=== PATIENT | female | born 1970 | race Caucasian/White ===

== ENCOUNTER 2024-12-13 21:52 | Inpatient (IN) | payer OTHER, SELFPAY ==
[2024-12-13 16:44] VITALS: BP 131/88
[2024-12-13 17:08] LABS: % Eosinophils 1.6 % (0-6); % Immature Granulocytes 0.3 % (0-0.5); % Lymphocytes 28.9 % (20.5-51.1); % Monocytes 6.8 % (1.7-9.3); % Neutrophils 61.4 % (42.2-75.2); Absolute Basophils 0.1 10^3/uL (0-0.2); Absolute Eosinophils 0.1 10^3/uL (0-0.7); Absolute Lymphocytes 2.6 10^3/uL (1.2-3.4); Absolute Monocytes 0.6 10^3/uL (0.1-0.6); Absolute Neutrophils 5.4 10^3/uL (1.4-6.5); Hemoglobin 13.5 g/dL (12.0-16.0); Mean Corp Hgb Conc. 33.8 g/dL (33.0-37.0); Mean Corpuscular Hgb 30.3 pg (27.0-31.0); Mean Corpuscular Volume 89.7 fL (81.0-99.0); Mean Platelet Volume 10.2 fL (7.4-10.4); Nucleated Red Blood Cells % 0 %; Platelet Count 248 10^3/uL (130-400); Red Blood Cell Count 4.46 10^6/uL (4.20-5.40); Red Cell Dist. Width 12.9 % (11.5-14.5); White Blood Cell Count 8.9 10^3/uL (4.8-10.8)
[2024-12-13 17:20] LABS: COVID-19 Antigen Negative (Negative)
[2024-12-13 17:27] LABS: ALT (SGPT) 21 U/L (0-35); AST (SGOT) 22 U/L (14-36); Albumin 4.6 g/dl (3.5-5.0); Alkaline Phosphatase 77 U/L (38-126); Blood Urea Nitrogen 19 mg/dl (7-17); Calcium 9.5 mg/dl (8.4-10.2); Carbon Dioxide 22 mmol/L (22-30); Chloride 103 mmol/L (98-107); Glucose 114 mg/dl (70-99); Potassium 4.1 mmol/L (3.5-5.1); Sodium 135 mmol/L (135-145); Total Bilirubin 0.5 mg/dl (0.2-1.3); Total Protein 7.3 g/dl (6.3-8.2); eGFR > 60.00
[2024-12-13 17:31] LABS: Troponin I < 0.012 ng/ml
[2024-12-13 18:20] VITALS: BP 138/89
[2024-12-13 19:00] VITALS: BP 141/99
--- NOTE | 2024-12-13 19:58 | ED.GENMED ---
History of Present Illness
General
Chief Complaint: Chest Pain
Source: patient
Time Seen by Provider: 12/13/24 18:42
History of Present Illness
History of Present Illness:
54-year-old female with no significant past medical history presenting to the emergency department for evaluation after she has been experiencing intermittent episodes of lightheadedness which she states last for only a couple of seconds and then
resolved but have been more consistent today and accompanied with some mild. Patient notes that when she gets the lightheadedness sensation she often will feel little short of breath and today also had a mild headache but notes the headache is now
fully resolved and at time of my exam patient is asymptomatic. She denies any fevers or recent illnesses. Denies any palpitations, diaphoresis, exertional dyspnea, orthopnea, cough, abdominal pain or any other concerns. Denies any history of
similar. Social history unremarkable for any abnormalities. Family history noncontributory.
Past History
Past History
ED Past Medical History: None
ED Past Surgical History: None
Social History
Tobacco: Non-smoker
Alcohol: Occasional
Drug: None
Personal:
Living: with family
Review of Systems
Review of Systems
All Other Systems: ROS reviewed and negative except as documented in HPI and ROS
Phy Exam
Physical Exam
Physical Exam:
GENERAL: Alert , in no apparent distress
HEAD: NCAT
EYE: conjunctiva clear
NECK: Supple
ENT: o/p clr, mmm.
CARDIAC: Regular rate and rhythm
LUNGS: Clear breath sounds bilaterally, no acute respiratory distress, no wheezes/rales/rhonchi
NEUROLOGICAL: Alert and oriented
SKIN: Warm and dry, skin intact.
MUSCULOSKELETAL: well perfused.
PSYCH: Normal and appropriate interaction.
Scores
Heart Failure Risk
Heart Failure Risk Score: Not Applicable
Heart Score for Chest Pain Patients
STEMI patient?: Not applicable
Withdrawal Assessment of Alcohol
Withdrawal Assessment Completed?: Not applicable
Course
Orders/Labs/Results
Orders:
Orders
12/13/24 16:39
EKG [Electrocardiogram (*1)] Urgent
Reason for Study: Chest Pain
EKG- Treatment ONCE
12/13/24 16:54
COVID-19 Antigen Urgent
Source: Nasal Swab
Complete Blood Count/With Diff Urgent
Comprehensive Metabolic Panel Urgent
Troponin I Urgent
Influenza A+B Rapid Molecular Urgent
SHEBA Source: Nasal Swab
Specimen Description:
12/13/24 17:59
CR Chest - 2 Views Urgent
Comment:
Reason For Exam: chest pain
12/13/24 19:42
EKG [Electrocardiogram (*1)] Urgent
Reason for Study: Chest Pain
EKG- Treatment ONCE
12/13/24 19:46
Troponin I Urgent
Abnormal Lab Results
12/13/24
16:54
BUN 19 H mg/dl
(7-17)
Glucose 114 H mg/dl
(70-99)
12/13/24 16:54
12/13/24 16:54
Vital Signs
Initial and Last Documented VS:
Initial Vital Signs
Temp Pulse Resp BP Pulse Ox
98.9 F 83 18 131/88 99
12/13/24 16:44 12/13/24 16:44 12/13/24 16:44 12/13/24 16:44 12/13/24 16:44
Last Documented Vital Signs
Temp Pulse Resp BP Pulse Ox
98.9 F 70 17 131/88 99
12/13/24 16:44 12/13/24 18:20 12/13/24 18:20 12/13/24 16:44 12/13/24 16:44
MDM/Problems Addressed
Differential Diagnosis Includes:
ACS, dissection, cardiac dysrhythmia, valvular dysfunction, PE considered however given patient is without any cough/pleurisy/hypoxia I am a little less suspicious for this is a diagnosis, anxiety/stress considered given patient currently studying
for an exam that she is scheduled to take within 1 week
MDM/Problems Addressed:
54-year-old female presenting to the ER for evaluation of transient lightheadedness and chest discomfort over the last 48 hours. Patient describes it as if she were to stand up very quickly but notes she has been experiencing the symptoms even when
laying flat. No recent illnesses. Labs were initiated on arrival which are all reassuring. Chest x-ray without any abnormal findings. EKG is normal sinus rhythm without any ectopy or ischemic changes. Given patient is low risk chest pain will
obtain 3-hour troponin and repeat EKG. Disposition pending and can refer patient to the chest pain hotline for an expedited follow-up.
*Radiology
Radiology exam reviewed: preliminary read by ED provider (Normal chest x-ray)
*Pulse Oximetry
Patient hypoxic: no
*EKG
Heart Rate: 84
Rate: normal
Rhythm: sinus
Ischemia: no ischemia
*Substance Abuse Prevention Coordinator Interpretation
Rate: normal
Rhythm: sinus
*Critical Care Note
Total Time (30-74mins, 75-104mins- exclusive of procedures): Not Applicable
Patient Management
Discussion with other providers: Hospitalist and Traveling Representative
Escalation/DeEscalation of care consider admission/obs:
While awaiting for repeat troponin and EKG, patient was noted on her telemetry to go into an approximate 6-second pause and was symptomatic during this time. Patient was placed on pacer pads, repeat EKG done as well as repeat troponin. Repeat EKG
shows patient is still in a normal sinus rhythm with no ischemic changes. Cardiology team notified and will see the patient in consult. Agrees with remaining workup plan. Hospitalist team accepts for continued evaluation and treatment.
ED Attending Note
-
Portions of this chart may have been created with voice recognition software.� Occasional wrong word or��sound alike� substitutions may have occurred due to the inherent limitations of voice recognition software.
Discharge Plan
Departure
Patient Disposition: Admit
Date of Disposition: 12/13/24
Time of Disposition: 19:59
Presentation/result/management discussed w/ accepting MD/DO: Hospitalist
Discharge Problem:
Cardiac dysrhythmia
Prescriptions:
No Action
Advil
2 tab PO PRN PRN (Reason: MTZ)
Patient Comments:
pt does not know dose
Interventions
Interventions:
*Risk Screen - Suicide Last Done: 12/13/24 16:45
*General Assessment Last Done: 12/13/24 16:45
*Neglect/Abuse Screening Last Done: 12/13/24 16:45
*ED COVID-19 Vaccine History Last Done: 12/13/24 18:04
ED- Cardiac Assessment Last Done: 12/13/24 18:21
Discharge Date and Time
Print Language: [id number]
--- NOTE | 2024-12-13 20:06 | EDRN ---
While on ekg monitor tech, pt. witnessed to have approximately 6 second pause, provider notified, EKG complete, IV access obtained/repeat trop. drawn. Cardiac rhythm strip printed and placed on chart. Cardiac pads placed on pt. per PA verbal orders,
code cart at bedside.
[2024-12-13 20:19] VITALS: BP 153/92
[2024-12-13 20:19] LABS: Troponin I < 0.012 ng/ml
--- NOTE | 2024-12-13 20:38 | HPS.HSE ---
Family Physician
-
Family Physician: ADITYA Barrow
Chief Complaint
-
lightheadedness and chest discomfort
History of Present Illness
Patient is a 54-year-old female with no significant past medical history who presented to [place] ED for evaluation of lightheadedness and chest discomfort. Patient states she has had episodes of lightheadedness on and off for years. She reports
they normally have been with months in between. This week it has been intermittent over the past 48-hours. She denies any lightheadedness today until after arrival in ED. She stated she called her primary provider today with c/o chest discomfort
that felt as if something was sitting on her chest. She assumed she was getting sick as her son is just getting over influenza. Primary provider returned her call to schedule an appointment and recommended she come to ED for evaluation. Patient
denies any other associated symptoms with the brief lightheadedness. She claims they last a few seconds then resolves completely. Patient denies any recent sick contact, fevers, chills, palpitations, shortness of breath, nausea, vomiting,
constipation, diarrhea, or urinary symptoms.
Medical History
Past Medical History
Past Medical History: Reports None
Past Surgical History: Reports Other
Additional Past Surgical History:
bilateral bunionectomy
lipoma removal from shoulder
Social History
Tobacco: Non-smoker
Alcohol: Occasional
Drug: None
Personal:
Living: With Family
Employment: Employed
Family History
Family History: Not pertinent
Allergies / Home Medications
Allergies reflects when Allergies were last updated in [facility].
Home Medications with original date entered in [facility]
Allergy/Medication List:
Allergies
Allergy/AdvReac Type Severity Reaction Status Date / Time
amoxicillin Allergy Unknown Verified 12/13/24 16:48
Cephalosporins Allergy Unknown Verified 12/13/24 16:48
Penicillins Allergy Unknown Verified 12/13/24 16:48
Home Medications
Review of Systems
-
History Source: Patient
Constitutional: Reports No Symptoms
EENT: Reports No Symptoms
Respiratory: Reports No Symptoms
Cardiac: Reports Chest Pain
Abdomen/GI: Reports No Symptoms
: Reports No Symptoms
Musculoskeletal: Reports No Symptoms
Skin: Reports No Symptoms
Neurological: Reports Other (intermittent lightheadedness )
Endocrine: Reports No Symptoms
Hematologic/Lymphatic: Reports No Symptoms
Psych: Reports No Symptoms
Physical Exam
Vital Signs
Vital Signs
Temp Pulse Resp BP Pulse Ox
98.9 F 80 13 153/92 99
12/13/24 16:44 12/13/24 20:19 12/13/24 20:19 12/13/24 20:19 12/13/24 20:19
Physical Exam
General: Well Developed, Well Nourished, No Apparent Distress, Comfortable and Conversant
HEENT: NormoCephalic, Moist mucous membranes, Atraumatic, Nose Appears Normal and Ears Appear Normal
Respiratory: Clear and Non Labored Respirations
Cardiac: S1/S2 and Regular Rhythm; No Murmur, Rub or Gallop
Breast: Deferred by me
GI: Soft, Non Tender and Normal Bowel Sounds; No Organomegaly
Rectal: Deferred by Provider
Genito-urinary: Deferred by me
Musculoskeletal: No Clubbing, No Cyanosis and No Edema
Skin: Warm and IV/Catheter Site; No Rash
Neuro: Awake, Alert, AO x 3 and Nonfocal/grossly intact
Psych: Calm and Intact Judgment/Insight
Laboratory Results
-
12/13/24 16:54
12/13/24 16:54
Laboratory Results
Total Bilirubin 0.5 mg/dl (0.2-1.3) 12/13/24 16:54
AST 22 U/L (14-36) 12/13/24 16:54
ALT 21 U/L (0-35) 12/13/24 16:54
Alkaline Phosphatase 77 U/L (38-126) 12/13/24 16:54
Troponin I < 0.012 ng/ml 12/13/24 19:46
Data Reviewed
-
Diagnostic Radiology: Report Reviewed by me (CXR: )
Medical Tests (Nuc Med, Echo, EKG etc): Report Reviewed by me (EKG: NSR)
Lab Data: Labs Reviewed by me
Impression/Plan
-
IMPRESSION/PLAN:
#lightheadedness
CXR: pending
EKG: NORMAL SINUS RHYTHM
6 second pause caught on telemetry in ED
- admit to telemetry
- consult cardiology
- trend troponin
- ECHO in AM
- labs: BNP, TSH, A1C, [facility] [place], lipids, mag
Code status:Full code
DVT Prophylaxis: Lovenox sq
--- NOTE | 2024-12-13 20:57 | W.PN.UPDATE ---
Update Note
Progress Note Update
Patient seen in conjunction with ADITYA. I agree with the findings on history and physical as well as the assessment and plan.
Briefly this is a generally healthy 54-year-old who denies any significant past medical history, notes past medical history of aneurysms, and stroke in the family. Present to the emergency department after being interviewed by physician for
palpitations and chest heaviness.
Patient reported that she has had a history of palpitations for a long time. Only occurs about once to twice a month and then resolves within seconds and she often attributes this to low blood sugars. She has no known history of diabetes. However
in the last 1 week the patient reports that she has had increased frequency of the palpitations and lasting longer. She feels dizzy and lightheaded with them now. She stated that this afternoon while at work she had a palpitations and then
developed chest pressure. This lasted several seconds. At home she complains of being short of breath and when she discussed this with her son he thought she was just tired from walking. Patient reports that her son recently had a flulike
infection. She denies any flulike symptoms. Patient reports history of having had a tick on her skin in August 2023. Patient denies any any rash. She denies any joint aches and pains. She denies any prior episodes of exertional chest pain or
exertional dyspnea. Has no recent travels. Denies any lower extremity swelling.
In the emergency department she was afebrile, blood pressure was 150/90 with a pulse of 80 satting 99% on room air. ECG showed a normal sinus rhythm in the 70s unchanged from prior. Troponin was reported 012. CBC was normal electrolytes
BUN/creatinine were also normal. While she was on telemetry she was found to have a 6-second ventricular pause with 9 non-conducted p waves and symptomatic.
Assessment and plan�acute conduction abnormality with possibility of development of her heart block. Etiology uncertain. No rate agents in history. Currently sinus at 70s Normal BP
Admit to IVU
Zolepads at bedside
If symptomatic or unstable will need temp ppm (cardiology aware)
Epinephrine gtt for symptomatic heart block
- check tsh, lyme, d-dimer
- echo
- cycle enzymes check bnp
- a1c and cardiovascular testing
- npo after midnight
- cardiology consult.
DVT PPX - lovenox sq
Code status - Full Code
[2024-12-13 21:00] VITALS: BP 146/92
[2024-12-13 22:17] VITALS: BP 139/90
[2024-12-13 23:22] LABS: Troponin I < 0.012 ng/ml
[2024-12-13 23:42] VITALS: BMI 28.0
--- NOTE | 2024-12-13 23:52 | PTCARENOTE ---
Received patient from ED. SR on the monitor, HR in the 70s. Alert and oriented. Pads in place, Educated patient on plan of care, pt verbalizes understanding. No complaints from pt at this time, call logan within reach.
[2024-12-14] VITALS (7 sets, daily range): BP systolic 115–142; BP diastolic 72–90
[2024-12-14 01:43] LABS: Troponin I < 0.012 ng/ml
[2024-12-14 05:29] LABS: ALT (SGPT) 20 U/L (0-35); AST (SGOT) 20 U/L (14-36); Albumin 4.1 g/dl (3.5-5.0); Alkaline Phosphatase 61 U/L (38-126); Blood Urea Nitrogen 15 mg/dl (7-17); Calcium 9.1 mg/dl (8.4-10.2); Carbon Dioxide 19 mmol/L (22-30); Chloride 105 mmol/L (98-107); Estimated Creatinine Clearance 93 ml/min; Glucose 97 mg/dl (70-99); HDL Cholesterol 35 mg/dl; LDL Cholesterol, Calculated 105 mg/dl; Magnesium 1.9 mg/dl (1.6-2.3); Potassium 4.3 mmol/L (3.5-5.1); Sodium 136 mmol/L (135-145); Total Bilirubin 0.7 mg/dl (0.2-1.3); Total Cholesterol 197 mg/dl (50-199); Total Protein 6.6 g/dl (6.3-8.2); Triglyceride 288 mg/dl (10-149); Very Low Density Lipoprotein 57 mg/dl (0-30); eGFR > 60.00
--- NOTE | 2024-12-14 08:50 | CM ---
Reviewed chart. . Met with Mrs. Markham to review discharge plans. She states prior to admission she resides with her spouse and three boys in a three story home with two steps to enter. She states she has a full flight of steps to get to
bedroom/full bathroom. She states she has a powder room on the first floor. She states prior to admission she was independent with ambulation and adls. She states she pickard not have any DME in the home. She states she has a prescription plan and
uses [facility]. Medical work-up in progress. The discharge plan is to return home with her spouse and children when medically stable.
[2024-12-14 09:06] LABS: Troponin I < 0.012 ng/ml
[2024-12-14 09:27] LABS: Glycohemoglobin (HgbA1c) 5.6 % (4.0-5.6)
--- NOTE | 2024-12-14 09:41 | CON.CAR ---
Addendum entered and electronically signed by Surendra Higuera MD 12/14/24 12:16:
Patient seen and examined
Agree with KYLEIGH Woods's note and assessment
Agree with KYLEIGH's plan
Reviewed telemetry strip from the emergency department demonstrating normal ND interval with a 6.6-second pause with abrupt loss of conduction and upon resumption of conduction ND interval appears similar in duration. She has noted 4-5 episodes
daily over the weekend and this week and the episode in the emergency department this morning led to tunnel vision but no gita syncope. She has been tired and stressed due to an upcoming examination. Reduced hydration and increased caffeine over
the last 3 to 4 days. She has had these episodes since her early 30s without gita syncope typically being 3-4 times a year but as stated above over the last 3 to 4 days they have been escalating in frequency and duration of symptoms. She has no
history of pacing in the family or sudden cardiac in the family. Her chest symptoms are not related to exercise. She has no history of sudden in the family nor premature cardiac pacing in the family.
Examination:
As per KYLEIGH Woods's notes
Cor regular
Left sided IV
Alert and x 3
Nonfocal neurological
No respiratory distress
Her telemetry from the emergency department was reviewed
Primary District Loss Prevention Manager: none
Assessment:
Presentation with lightheaded episodes
7.7 second ventricular pause, symptomatic associated with tunnel vision and near syncope
ECHO 12/14/24: pending
Plan:
-Patient presented with increased frequency of episodes of lightheadedness over the last 48 hours. While in the emergency room, she had reproduction of symptoms associated with a 7.7-second sinus pause on telemetry. She has had these episodes for
approximately 20 years but escalating in frequency over the last week
-Not on AV michelle blocking agents as an outpatient
-Troponins negative x 3. Chest x-ray without acute disease
-Currently in sinus rhythm on review of telemetry currently with a normal ND
-Check TSH
-Check echo
-Check Lyme titer but her presentation is not consistent with Lyme
-Discussed that she may require pacemaker placement. She is presently NPO. Reviewed pacemaker procedure with patient and she is agreeable to proceed if necessary. I described a 1 and 1000 risk of IL stroke and a 1% risk of pneumothorax
tamponade infection or bleeding. We discussed options of endocardial pacing versus Micra implant and given the fact that she will likely require AV synchrony and would require multiple micros over her lifetime we discussed endocardial pacing with
standard left sided deltopectoral groove approach. She wants to discuss with her prior to implant who is in [place] with his parents with 1 being placed on hospice
-d/w nursing
-If patient defers on permanent pacing I would place her on a strict driving restriction until she agrees and also discussed that this can be progressive and could lead to morbidity. We will keep n.p.o. for now and plan tentatively pacemaker
placement after echocardiogram later today
Original Note:
Consultation
Consultation Request
Date/Time Consultation Performed: 12/14/24
Requesting Provider: Dr. Gee
Performing Provider: Salima Woods PA-C for Dr. Higuera
Reason for Consultation: lightheadedness, pause
Medical History
-
Chief Complaint: lightheadedness
History of Present Illness:
Patient is a 54 yo F without significant PMH who presents due to episodes of lightheadedness which she has experienced intermittently over the last year or two, however over the last 48 hours have become much more frequent. She reports they occur
randomly and she feels suddenly 'washed out' and lightheaded. The episodes typically last only several seconds. Denies associated LOC, CP, SOB. She had episode in ER which reproduced her symptoms and was associated on tele with 7.7 second pause.
Cardiology consulted for evaluation. Denies known history of thyroid issues. Last known tick bite was 08/2023. Denies family history of conduction issues. She is not on any av michelle blocking agents.
PMH:
none
Past Medical History
Past Medical History: Other (in HPI)
Social History
Tobacco: Non-Smoker
Alcohol: Occasional
Personal:
Living: With Family
Employment: Employed
Family History
Family History: Other (CVAs in father)
Allergies / Home Medications
Allergy/AdvReac Type Severity Reaction Status Date / Time
amoxicillin Allergy Unknown Verified 12/13/24 16:48
Cephalosporins Allergy Unknown Verified 12/13/24 16:48
Penicillins Allergy Unknown Verified 12/13/24 16:48
�Medication �Instructions �Recorded �Confirmed �Type
Advil 2 tab PO PRN PRN MTZ 02/05/11 02/05/11 History
Review of Systems
-
History Source: Patient
All other systems: Negative unless noted
Physical Exam
Vital Signs
Temp Pulse Resp BP Pulse Ox
98.2 F 70 20 135/87 98
12/14/24 07:03 12/14/24 07:45 12/14/24 07:03 12/14/24 07:07 12/14/24 07:03
Lab Results
12/13/24 16:54
12/14/24 04:35
Troponin I < 0.012 ng/ml 12/14/24 08:31
Physical Exam
General: No Apparent Distress and Comfortable
HEENT: Normocephalic, Anicteric and Moist Mucous Membranes
Respiratory: Clear and Non Labored Respirations
Cardiac: S1/S2 and Regular Rhythm
Musculoskeletal: No Clubbing, No Cyanosis and No Edema
Skin: Warm and Dry
Neuro: AO x 3
Impression / Plan
-
Primary District Loss Prevention Manager: none
Assessment:
Presentation with lightheaded episodes
7.7 second sinus pause, symptomatic
ECHO 12/14/24: pending
Plan:
-Patient presented with increased frequency of episodes of lightheadedness over the last 48 hours. While in the emergency room, she had reproduction of symptoms associated with a 7.7-second sinus pause on telemetry
-Not on AV michelle blocking agents as an outpatient
-Troponins negative x 3. Chest x-ray without acute disease
-Currently in sinus rhythm on review of telemetry
-Check TSH
-Check echo
-Check Lyme titer
-Discussed that she may require pacemaker placement. She is presently NPO. Reviewed pacemaker procedure with patient and she is agreeable to proceed if necessary
-d/w nursing
Data Reviewed
-
EKG: Tracing Personally Visualized and interpreted
Radiology: Report Reviewed by me
Labs: Labs Reviewed by me
Old Records: Reviewed
--- NOTE | 2024-12-14 10:17 | W.PN.HOSP.TC ---
Today's Communication/Plan
-
.
Assessment / Plan
Assessment / Plan
1. Acute Conduction Abnormality of Unknown Origin
- Possibility of development of heart block
- Etiology uncertain, patient not on any rate control or QRS prolonging agents
- Currently sinus, normotensive, RRR, no mr/r/g
- Zolepads at bedside
- Cardiology consulted
- Patient last seen by PCP in 08/2023.
- TSH reflex to T4
- Lyme serology (bitten by tick in 2022 without PCP follow up)
- HbA1c
- Lipid Panel shows mild hypertriglyceridemia/hypercholesterolemia
- NPO pending cardiology evaluation
Full code/Lovenox/n.p.o.
Anticipated Discharge: 24 - 48 hours
Subjective/Interval History
-
Date of Service: December 14, 2024
Patient seen and examined while resting comfortably in bed, while on her laptop, doing some work, in no acute distress. Went over her history of present illness. Briefly, patient states that she experiences intermittent lightheadedness for a number
of years, however there is no pattern and episodes are few and far between. 5 days ago, patient started to experience these episodes of lightheadedness more frequently on a daily basis. Yesterday, patient started having chest pain that she
described as a pressure ('like an elephant sitting on my chest'). The chest pain lasted approximately 3 hours. Patient denies any prior episodes of chest pain. Patient called her PCP who advised her to come to the emergency department.
ED Course: Physical examination unremarkable, AFVSS, labs unremarkable, negative CXR, EKG NSR, troponins negative. Patient had 1 episode of dizziness in the emergency department and adoption social worker showed 6-second ventricular pauses and 9
nonconducted P waves.
Overnight, patient states that she has not had any dizzy spells since that episode in the emergency department and that she has not had any chest pain while here. She denies any further cardiopulmonary complaints. Patient does note a minor
headache.
Objective Data
-
Labs:
Laboratory Results
12/14/24
04:35
Sodium 136
Potassium 4.3
Chloride 105
Carbon Dioxide 19 L
BUN 15
Creatinine 0.7
Glucose 97
Calcium 9.1
Total Bilirubin 0.7
AST 20
ALT 20
Alkaline Phosphatase 61
Vital Signs:
Vital Signs
Temp Pulse Resp BP Pulse Ox
98.2 F 70 20 135/87 98
12/14/24 07:03 12/14/24 07:45 12/14/24 07:03 12/14/24 07:07 12/14/24 07:03
Review of Systems
-
History Source: Patient
Constitutional: Reports No Symptoms
Respiratory: Reports No Symptoms
Cardiac: Reports No Symptoms
Abdomen/GI: Reports No Symptoms
Neuro: Reports Headache (Mild)
Physical Exam
-
General: Well Developed, Well Nourished, No Apparent Distress, Comfortable and Conversant
HEENT: Normocephalic and Atraumatic
Respiratory: Clear to Auscultation and Non Labored Respirations; Negative Wheezes, Rales, Rhonchi or Crackles
Cardiac: Regular Rhythm and S1/S2; Negative Irregular Rhythm, Murmur or Rub
GI: Soft and Nontender
Musculoskeletal: No Clubbing, No Cyanosis and No Edema
Skin: Warm and Dry
Neuro: Awake, Alert, AO x 3, No Motor Deficits, Nonfocal/Grossly Intact and Central Nerve's Intact
Psych: Calm
Data Reviewed
-
Labs: Labs Reviewed by me and Discussed with Patient
[2024-12-14] MEDS: OFIRMEV 100 IV (10:20)
--- NOTE | 2024-12-14 10:34 | PTCARENOTE ---
Received patient this morning resting in bed. Denies any chest pain or dizziness at this time. Pacer pads in place. Patient is NPO but has a severe headache she believes from not eating. Notified resident and patient receiving IV offirmev as
ordered.
[2024-12-14] MEDS: NSS 500 IV (10:38)
[2024-12-14 11:11] LABS: Glucose - Point of Care 88 mg/dl (70-99)
[2024-12-14 11:31] LABS: HCG, Urine Qualitative Screen Negative
--- NOTE | 2024-12-14 13:01 | W.PN.UPDATE ---
Update Note
Progress Note Update
I saw and evaluated the patient. I reviewed the resident�s note and agree with findings and plan as documented in the resident�s note.
Gen: NAD, AAOx3.
Eyes: EOMI, PERRLA, no scleral icterus.
Neck: supple.
CV: RRR, +S1/S2, no m/r/g.
Resp: CTAB, no rales, wheezes, or rhonchi.
Abd: +BS, soft, NT, ND
Skin: No rashes.
Neuro: CN 2-12 intact, non-focal.
Psych: Normal mood and affect.
CXR: No acute disease of the chest.
7.7 sec ventricular pause:
-CXR clear, trop NEG x 5, K/Mg normal TSH pending
-tele (since arrival to the floor) reviewed, no alarms. Keep zol pads in place.
-for PPM today
-transfer to [facility] service
[2024-12-14] MEDS: VANCOCIN 200 IV (14:07)
--- NOTE | 2024-12-14 16:02 | ITS.CL.PACE ---
Parts Identification Technician - Pacemaker Implant
Pacemaker Implant
Procedure Report:
Date of Procedure: December 14, 2024
Patient : 1970
Procedure: Pacemaker Implantation.
Indication: Paroxysmal AV block associated with symptoms and near syncope. Greater than 7-second pause documented in the emergency department
Implants:
Pulse Generator: Medtronic; Model# W1 DR 01; SN: [id number]
RA Lead: Medtronic; Model# 4574; SN: [id number]
RV Lead: Medtronic; Model# 4074; SN: [id number]
Technique: A time out was performed. The procedure site was identified. The patient was anesthetized by the anesthesia service. Preoperative sedation was administered. The patient was prepped and draped in the usual fashion. Local anesthetic was
applied to the left prepectoral subcutaneous tissue. A 3 inch incision was made 2.5 inches below the left clavicle. A subcutaneous pocket was created with blunt and sharp dissection and hemostasis controlled with Bovie cautery. The left axillary
vein was accessed within the pocket without difficulty. Hemostasis was excellent. The leads were introduced with 7 Fr hemostatic peel away introducer sheaths. The ventricular lead was placed at the right ventricular apex. The atrial lead was placed
in the right atrial appendage. 10 volt pacing did not capture the diaphragm. The leads were secured to the pectoralis muscle and fascia. The leads were appropriately attached to the device. The pocket was irrigated with antibiotic solution. The
device and leads were placed in the pocket. The incision was closed in three layers with absorbable suture. The estimated blood loss was minimal. There were no complications.��
Lead Analysis:
RA lead: P: 2.5 mV; Threshold: 0.5 V @ 0.5��ms; Impedance: 890 ohms.
RV lead: R: 16 mV; Threshold: 0.75 V @ 0.5��ms; Impedance: 1040 ohms.
Final Programming: AAI�DDD 50 to 170 bpm
�
Conclusion: Uncomplicated Medtronic pacemaker implant.
Recommendation: Routine post pacemaker care.
[2024-12-14] MEDS: STERILE WATER FOR INJECTION 10 ML IV (16:28)
[2024-12-14] MEDS: AZACTAM 2000 MG IV (16:28)
--- NOTE | 2024-12-14 16:30 | PTCARENOTE ---
Received patient from the PACU at 1615 after pacer insertion left upper chest. Aquacel dressing is dry and intact with the immobilizer in place. Monitoring VS, call logan in reach, son speaking with Dr. Higuera.
[2024-12-14] MEDS: TYLENOL 650 MG PO (19:55)
[2024-12-14] MEDS: LOVENOX 40 MG SC (19:56)
--- NOTE | 2024-12-14 21:47 | PTCARENOTE ---
Patient received at change of shift resting in the bed. Left upper anterior chest wall aquacell C/D/I, no ecchymosis, surrounding area soft to palpation. Bilateral radial pulses palpable. Patient reports mild incisional pain following PPM surgery
today, see MAR. Patient denies feeling lightheaded or dizzy, denies N/V. Activity restrictions discussed with patient. Plan of care discussed. Call logan within reach. Bed in lowest position, wheels locked. Care ongoing.
[2024-12-15 03:37] VITALS: BP 128/88
[2024-12-15 04:03] LABS: Hematocrit 40.9 % (37.0-47.0); Hemoglobin 14.1 g/dL (12.0-16.0); Mean Corp Hgb Conc. 34.5 g/dL (33.0-37.0); Mean Corpuscular Hgb 30.5 pg (27.0-31.0); Mean Corpuscular Volume 88.3 fL (81.0-99.0); Mean Platelet Volume 10.6 fL (7.4-10.4); Platelet Count 235 10^3/uL (130-400); Red Blood Cell Count 4.63 10^6/uL (4.20-5.40); Red Cell Dist. Width 12.4 % (11.5-14.5); White Blood Cell Count 14.3 10^3/uL (4.8-10.8)
[2024-12-15 04:16] LABS: Blood Urea Nitrogen 16 mg/dl (7-17); Calcium 9.7 mg/dl (8.4-10.2); Carbon Dioxide 17 mmol/L (22-30); Chloride 105 mmol/L (98-107); Estimated Creatinine Clearance 93 ml/min; Glucose 121 mg/dl (70-99); Potassium 4.8 mmol/L (3.5-5.1); Sodium 134 mmol/L (135-145); eGFR > 60.00
[2024-12-15 07:20] VITALS: BP 133/87
--- NOTE | 2024-12-15 08:40 | W.PN.CARDCBS ---
Addendum entered and electronically signed by Surendra Higuera MD 12/15/24 10:39:
Patient seen and examined
Agree with KYLEIGH Woods's note and assessment
Agree with KYLEIGH Woods's plan
Chest x-ray personally reviewed with leads in the right atrial appendage and right ventricle and is without pneumothorax
Telemetry overnight with appropriate atrial sensing and ventricular sensing
Examination:
Cor regular no murmurs
Left deltopectoral groove site clean dry and intact without hematoma
Alert and x 3
Nonfocal neurologically
JVP 6
No edema
No arm edema
Remainder as per KYLEIGH Woods's note
Assessment:
Presentation with lightheaded episodes
7.7 second sinus pause, symptomatic status post Medtronic dual-chamber pacemaker 12/14/2024
ECHO 12/14/24: EF 60 to 65%, no significant valvular disease, no pleural effusion present
Plan:
-Patient presented with increased frequency of episodes of lightheadedness over the last 48 hours. While in the emergency room, she had reproduction of symptoms associated with a 7.7-second sinus pause on telemetry
-Status post Medtronic dual-chamber pacemaker 12/14/2024
-Remains in sinus rhythm on review of telemetry overnight
-Chest x-ray without evidence of pneumothorax
-Echocardiogram with results as above, results reviewed with patient 12/15
-TSH within normal limits
-Lyme titer pending
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
-Wound check appointment arranged
-Okay for discharge to home today
-Would consider for OP stress test as well as cardiac MRI due to unknown etiology of conduction disease once her leads have demonstrated stable parameters 4 to 6 weeks
Original Note:
Today's Communication / Plan
-
doing well s/p PPM
ok for DC to home today
wound check arranged
Impression / Plan
-
Primary Hall Cleaner: none
Assessment:
Presentation with lightheaded episodes
7.7 second sinus pause, symptomatic status post Medtronic dual-chamber pacemaker 12/14/2024
ECHO 12/14/24: EF 60 to 65%, no significant valvular disease, no pleural effusion present
Plan:
-Patient presented with increased frequency of episodes of lightheadedness over the last 48 hours. While in the emergency room, she had reproduction of symptoms associated with a 7.7-second sinus pause on telemetry
-Status post Medtronic dual-chamber pacemaker 12/14/2024
-Remains in sinus rhythm on review of telemetry overnight
-Chest x-ray without evidence of pneumothorax
-Echocardiogram with results as above, results reviewed with patient 12/15
-TSH within normal limits
-Lyme titer pending
-Activity restrictions reviewed with patient
-Wound check appointment arranged
-Okay for discharge to home today
-could consider for OP stress test as well as cardiac MRI due to unknown etiology of conduction disease
-Discussed with nursing
-She expressed sincere appreciation for her care
[id number]
Progress Note - Hall Cleaner
Subjective
Date of Service: December 15, 2024
reports some discomfort with movement at L chest site
Objective
Labs:
12/15/24 03:41
12/15/24 03:41
Labs
Hgb 14.1 g/dL (12.0-16.0) 12/15/24 03:41
Hct 40.9 % (37.0-47.0) 12/15/24 03:41
Plt Count 235 10^3/uL (130-400) 12/15/24 03:41
Sodium 134 mmol/L (135-145) L 12/15/24 03:41
Potassium 4.8 mmol/L (3.5-5.1) 12/15/24 03:41
BUN 16 mg/dl (7-17) 12/15/24 03:41
Creatinine 0.7 mg/dL (0.6-1.0) 12/15/24 03:41
Glucose 121 mg/dl (70-99) H 12/15/24 03:41
Troponins
12/13/24 12/13/24 12/13/24
16:54 19:46 22:46
Troponin I < 0.012 < 0.012 < 0.012
12/14/24 12/14/24
01:05 08:31
Troponin I < 0.012 < 0.012
Vital Signs and I&O:
Vital Signs
Temp Pulse Resp BP Pulse Ox
98.5 F 77 20 133/87 98
12/15/24 07:22 12/15/24 07:20 12/15/24 07:22 12/15/24 07:20 12/15/24 07:22
Vital Signs
Temp Pulse Resp BP Pulse Ox
98.5 F 77 20 133/87 98
12/15/24 07:22 12/15/24 07:20 12/15/24 07:22 12/15/24 07:20 12/15/24 07:22
Intake & Output
12/13/24 12/14/24 12/15/24 12/16/24
07:59 07:59 07:59 07:59
Intake Total 480 / 480
Balance 480 / 480
Physical Exam
Physical Exam
GEN: No distress, awake, alert, oriented x3
HEENT: supple, anicteric, mmm, eomi
LUNGS: CTA B/L, no wheezes/rales
CV: Reg, S1/S2, no murmur
ABD: soft, BS+, NT/ND
EXT: No cyanosis, clubbing, edema
NEURO: Gross non-focal
SKIN: Warm, pink, dry. No rash. L chest site with dressing c/d/i
--- NOTE | 2024-12-15 08:40 | W.DS.TRANS ---
DC Summary - Prosthetic Assistant
-
Discharge Instructions:
Discharge Diagnosis/Procedures Pacemaker implant
Diet Regular
Activity Other activity
Additional Activity see device sheet
Driving Restrictions No driving for 1 week
Bathing Restrictions OK to Shower
Instructions:
Stand-Alone Forms: DC Inst - Implanted Device
Changes to Home Medications: No
Discharge Medications:
DC Medications w/original date entered in [employer])
ibuprofen 200 mg tablet 400 mg PO DAILYPRN PRN mild pain 12/14/24
Home Medication Changes
Pending Results: Yes
Additional Pending Results:
lyme titer
--- NOTE | 2024-12-15 09:50 | PTCARENOTE ---
Received patient this morning resting in bed. Aquacel dressing left upper chest is dry and intact. Patient seen by cardiology and is ok for discharge today.
--- NOTE | 2024-12-15 10:39 | PTCARENOTE ---
Reviewed discharge instructions with the patient and she states her understanding. Patient discharged home with her son.
== END 2024-12-15 10:30 | disposition home or self-care (01) | DRG 244 ==
LOC: IVU 21:52
PROVIDERS: Nurse Practitioner; Nurse Practitioner Family; Physician Assistant; Physician Assistant Medical; ADMITTING PHYSICIAN Internal Medicine; ATTENDING PHYSICIAN Internal Medicine Cardiovascular Disease; EMERGENCY PHYSICIAN Student in an Organized Health Care Education/Training Program; FAMILY PHYSICIAN Nurse Practitioner
PROC: 02H63JZ Insertion of Pacemaker Lead into Right Atrium, Percutaneous Approach (ICD-10-PCS; 2024-12-14)
PROC: 02HK3JZ Insertion of Pacemaker Lead into Right Ventricle, Percutaneous Approach (ICD-10-PCS; 2024-12-14)
PROC: 0JH606Z Insertion of Pacemaker, Dual Chamber into Chest Subcutaneous Tissue and Fascia, Open Approach (ICD-10-PCS; 2024-12-14)
DX: I44.39 Other atrioventricular block (principal); Z88.0 Allergy status to penicillin; Z88.1 Allergy status to other antibiotic agents
CPT/HCPCS: 33208; 71045; 71046; 80048; 80053; 80061; 81025; 82962; 83036; 83735; 84443; 84484; 85025; 85027; 86618; 87502; 87811; 93005; 93306; 99285; C1892; Q9967

== ENCOUNTER 2024-12-16 16:05 | Emergency (ER) | payer OTHER, SELFPAY ==
[2024-12-16 16:13] VITALS: BP 125/85
[2024-12-16 16:35] LABS: % Eosinophils 0.9 % (0-6); % Immature Granulocytes 0.2 % (0-0.5); % Lymphocytes 26.9 % (20.5-51.1); % Monocytes 7.1 % (1.7-9.3); % Neutrophils 63.9 % (42.2-75.2); Absolute Basophils 0.1 10^3/uL (0-0.2); Absolute Eosinophils 0.1 10^3/uL (0-0.7); Absolute Lymphocytes 2.5 10^3/uL (1.2-3.4); Absolute Monocytes 0.7 10^3/uL (0.1-0.6); Hematocrit 39.9 % (37.0-47.0); Hemoglobin 13.7 g/dL (12.0-16.0); Mean Corp Hgb Conc. 34.3 g/dL (33.0-37.0); Mean Corpuscular Hgb 30.8 pg (27.0-31.0); Mean Corpuscular Volume 89.7 fL (81.0-99.0); Mean Platelet Volume 10.3 fL (7.4-10.4); Nucleated Red Blood Cells % 0 %; Platelet Count 223 10^3/uL (130-400); Red Blood Cell Count 4.45 10^6/uL (4.20-5.40); Red Cell Dist. Width 12.9 % (11.5-14.5); White Blood Cell Count 9.3 10^3/uL (4.8-10.8)
[2024-12-16 16:47] LABS: ALT (SGPT) 18 U/L (0-35); AST (SGOT) 22 U/L (14-36); Albumin 4.4 g/dl (3.5-5.0); Alkaline Phosphatase 66 U/L (38-126); Blood Urea Nitrogen 21 mg/dl (7-17); Calcium 9.2 mg/dl (8.4-10.2); Carbon Dioxide 22 mmol/L (22-30); Chloride 105 mmol/L (98-107); Glucose 92 mg/dl (70-99); Potassium 4.2 mmol/L (3.5-5.1); Sodium 135 mmol/L (135-145); Total Bilirubin 0.6 mg/dl (0.2-1.3); eGFR > 60.00
[2024-12-16 16:57] LABS: Troponin I < 0.012 ng/ml
[2024-12-16 17:02] VITALS: BP 121/82
[2024-12-16 17:13] LABS: NT-proBNP 34.9 pg/ml
--- NOTE | 2024-12-16 17:44 | ED.GENMED ---
History of Present Illness
General
Chief Complaint: Cardiac Symptoms
Source: patient
Exam Limitations: none
Time Seen by Provider: 12/16/24 17:13
Nursing documentation reviewed up to this point in time: agreed with
History of Present Illness
History of Present Illness:
pt is a 54 y/o F that prior to 2 dyas ago had no PMH
came in 12/14 for lightheadedness/near syncope and presumed it was the flu because her son had the flu
pt ended up having a 7 second sinus pause while on the monitor and was admitted and had medronic pacer placed 12/[address] ramirez
post course echo normal and cxr clear
she went home yesterday feeling sore but well
today felt well until this afternoon
she had walked downstairs and back up but didn't feels ymptoms until after resting for about an hour and had chest pressure grdually develop like brick on her chest
she ecame quie anxious and called son to come get her
she feels better now but still has it
it is worse with deep breathing
no fever/cough/vomiting/diarrhea/syncope/prolonged sob, legs welling
pt did not notify cards
Past History
Past History
ED Past Medical History: None
ED Past Surgical History: Cardiac (pacer)
Social History
Tobacco: Non-smoker
Alcohol: Occasional
Drug: None
Personal:
Living: with family
Review of Systems
Review of Systems
Allergies reviewed?: Yes
All Other Systems: Not applicable
Phy Exam
Physical Exam
Physical Exam:
GENERAL: Alert , in no apparent distress
EYE: pupils equal and reactive
NECK: Supple
ENT: o/p clr, mmm.
CARDIAC: Regular rate and rhythm .
pacer site covered with dressing
LUNGS: Clear breath sounds bilaterally, no acute respiratory distress, no wheezes/rales/rhonchi
present and clear lungs;
ABDOMEN: Soft, without focal tenderness, no r/g, no cvat, normal bowel sounds
NEUROLOGICAL: Alert and oriented, no focal neuro deficits
SKIN: Warm and dry, skin intact.
MUSCULOSKELETAL: No edema, well perfused. neg sabina's sign
PSYCH: Normal and appropriate interaction.
Course
Orders/Labs/Results
Orders:
Orders
12/16/24 16:06
Electrocardiogram (*1) Urgent
Reason for Study: Chest Pain
EKG- Treatment ONCE
12/16/24 16:16
CR Chest - 2 Views Urgent
Comment:
Reason For Exam: chest pressure
12/16/24 16:[address] Non Medication Order As Directed
Physician Order: interrogate medtronic pacemaker
Above order entered?: Yes
12/16/24 16:21
Add On- LAB Urgent
Tests Added?: bnp
12/16/24 16:23
Complete Blood Count/With Diff Urgent
Comprehensive Metabolic Panel Urgent
NT-proBNP Urgent
Comment: ADD ON
Troponin I Urgent
12/16/24 19:22
Troponin I Urgent
12/16/24 20:12
Aspirin Chewable [Low Strength Aspirin] 81 mg PO NOW STA
Abnormal Lab Results
12/16/24
16:23
Absolute Monos (auto) 0.7 H 10^3/uL
(0.1-0.6)
BUN 21 H mg/dl
(7-17)
12/16/24 16:23
12/16/24 16:23
Vital Signs
Initial and Last Documented VS:
Initial Vital Signs
Temp Pulse Resp BP Pulse Ox
36.7 C 78 20 125/85 99
12/16/24 16:13 12/16/24 16:13 12/16/24 16:13 12/16/24 16:13 12/16/24 16:13
Last Documented Vital Signs
Temp Pulse Resp BP Pulse Ox
36.7 C 73 18 121/82 97
12/16/24 16:13 12/16/24 19:15 12/16/24 19:15 12/16/24 17:02 12/16/24 19:15
MDM/Problems Addressed
Differential Diagnosis Includes:
pacer failure, chf, SC, pe, pleural effusion
MDM/Problems Addressed:
54 y/o F
here 12/14 for ightheadedness
found to have 7 second pause on cardiac monitor technician
other testing normal
admitted and pacer placed
went home yesterday 12/15
and then today developed chest presure at rest around 2pm
it is better now but still present minimally
a little bit worse with deep breathing but no sob
no fever
otherwie feels well
NSR ekg
stable vitals, no tachycardia
well apeparing
normal chest wall
trop neg x [address] ahmadi
medronic device interpretation was NO EVENTS
pt's not being paced currently
cxr clear
2nd trop neg
cards recommended babay asa and d/c home, they will arrange otuatpeitn stress
*Critical Care Note
Total Time (30-74mins, 75-104mins- exclusive of procedures): Not Applicable
ED Attending Note
-
Portions of this chart may have been created with voice recognition software.� Occasional wrong word or��sound alike� substitutions may have occurred due to the inherent limitations of voice recognition software.
Discharge Plan
Departure
Patient Disposition: Home (Routine Discharge)
Date of Disposition: 12/16/24
Time of Disposition: 20:13
Patient with high blood pressure during this ER visit?: No
Condition: Fair
Covid-19: Not Applicable
Discharge Problem:
Chest pain
Instructions: Chest Pain (DC)
Prescriptions:
No Action
ibuprofen 200 mg Tablet
400 mg PO DAILYPRN PRN (Reason: mild pain)
Referrals:
Taylor Tate CRNP [Family Provider] - Follow up in 2-3 days
Carlo Ahmadi MD [Active] - Follow up in 5-7 days
Activity Restrictions/Additional Instructions:
YOUR TESTING TONIGHT WAS REASSURING
YOU SHOULD START TAKING BABY ASPIRIN DAILY
DR. AHMADI'S OFFICE IS GOING TO ARRANGE FOR A STRESS TEST
AVOID STRENUOUS ACTIVITY
RETURN FOR WORSENING SYMPTOMS, SHORTNESS OF BREATH, PASSING OUT, FEVER, OR ANY COCNERNS.
Interventions
Interventions:
*Risk Screen - Suicide Last Done: 12/16/24 17:36
*General Assessment Last Done: 12/16/24 16:13
*Neglect/Abuse Screening Last Done: 12/16/24 17:36
*ED COVID-19 Vaccine History Last Done: 12/16/24 17:36
*Nursing Disposition Last Done: 12/16/24 20:44
ED- Pulmonary Assessment Last Done: 12/16/24 17:36
ED- Cardiac Assessment Last Done: 12/16/24 17:36
Discharge Date and Time
Discharge Date/Time: 12/16/24 20:45
Print Language: MALTESE
--- NOTE | 2024-12-16 19:53 | CON.CAR ---
Consultation
Consultation Request
Date/Time Consultation Requested: 12/16/2024 at 6 PM
Date/Time Consultation Performed: 12/16/2024 at 7 PM
Requesting Provider: Laura Samano
Performing Provider: Carlo Valdez
Reason for Consultation: Substernal discomfort
Medical History
-
Chief Complaint: Chest pain
History of Present Illness:
Pleasant 54-year-old woman with little past history who developed symptoms of substernal chest discomfort and presented to the emergency department on December. She had been developing symptoms of chest discomfort in the days preceding with
near syncope. Upon presentation, she had a symptomatic 6.6-second episode of high-grade AV block. She was admitted, had a normal troponin, and on December 14 underwent implantation of a dual-chamber Medtronic pacemaker. She was discharged on the
and did well but returns today with recurrent substernal discomfort. No heart block has been identified. [facility] transmission is normal. First troponin is negative. Her EKG and chest x-ray are unremarkable and cardiology consultation is
requested. Pain was severe, has diminished and almost disappeared. She says she wants to train for a half marathon and has run 1 previously. Her son is at bedside who will be graduating as a PA from [employer] later this year
Past Medical History
Past Medical History: Other (As per HPI)
Past Surgical History: Other (Bunionectomy, lipoma resection)
Social History
Tobacco: Non-Smoker
Alcohol: Occasional
Drug: None
Personal:
Living: With Family
Employment: Employed (Human resources)
Family History
Family History: Reviewed & Not Pertinent
Allergies / Home Medications
Allergy/AdvReac Type Severity Reaction Status Date / Time
amoxicillin Allergy Unknown Verified 12/16/24 16:13
Cephalosporins Allergy Unknown Verified 12/16/24 16:13
Penicillins Allergy Unknown Verified 12/16/24 16:13
�Medication �Instructions �Recorded �Confirmed �Type
ibuprofen 200 mg tablet 400 mg PO DAILYPRN PRN mild pain 12/14/24 12/14/24 History
Review of Systems
-
All other systems: Negative unless noted
Physical Exam
Vital Signs
Temp Pulse Resp BP Pulse Ox
36.7 C 73 18 121/82 97
12/16/24 16:13 12/16/24 19:15 12/16/24 19:15 12/16/24 17:02 12/16/24 19:15
Lab Results
12/16/24 16:23
12/16/24 16:23
Troponin I < 0.012 ng/ml 12/16/24 16:23
Akr-[id number] Pept 34.9 pg/ml 12/16/24 16:23
Physical Exam
General: Well Developed
HEENT: Normocephalic
Respiratory: Clear
Cardiac: S1/S2
Breast: Deferred by me
GI: Non Tender and Non Distended
Musculoskeletal: No Edema
Skin: Warm and Dry
Neuro: AO x 3
Psych: Calm
Impression / Plan
-
Impression:
Chest pain
Heart block status post pacemaker 12/14/2024
Plan:
Her chest discomfort sounds anginal in nature but she is very low risk and has had 2 negative troponins with an unremarkable EKG. The cause of her symptoms is unclear. I suppose if she had a right coronary artery lesion compromising her AV michelle
artery this could produce episodes of heart block and so we should perform a sestamibi study. We will arrange for this as an outpatient. Because of her recent pacemaker this will be pharmacologic.
Pending her stress test she should be on aspirin. Otherwise I would make no changes.
Okay for discharge.
Data Reviewed
-
EKG: Tracing Personally Visualized and interpreted
Radiology: Image Personally Visualized and interpreted
Medical Tests (Nuc Med, Echo etc): Image Personally Visualized and interpreted (Echo reviewed, [facility] report reviewed)
Labs: Labs Reviewed by me
Old Records: Reviewed
[2024-12-16 19:58] LABS: Troponin I < 0.012 ng/ml
[2024-12-16] MEDS: LOW STRENGTH ASPIRIN 81 MG PO (20:31)
== END 2024-12-16 20:45 | disposition home or self-care (01) ==
LOC: EMR 16:05
PROVIDERS: Emergency Medicine; Physician Assistant; EMERGENCY PHYSICIAN Emergency Medicine; FAMILY PHYSICIAN Nurse Practitioner; OTHER PHYSICIAN Internal Medicine Cardiovascular Disease
DX: R07.89 Other chest pain (principal); Z95.0 Presence of cardiac pacemaker
CPT/HCPCS: 99285; 71046; 80053; 83880; 84484; 85025; 93005

== ENCOUNTER → 2025-01-05 12:29 | Outpatient (REF) | payer OTHER, SELFPAY | LOC: HWRCS 12:29 | PROVIDERS: ATTENDING PHYSICIAN Internal Medicine Cardiovascular Disease; FAMILY PHYSICIAN Nurse Practitioner | DX: R07.9 Chest pain, unspecified (principal) | CPT/HCPCS: 78452; 93017; A9500; J2785 ==